=== PATIENT | male | born 1970 | race Caucasian/White ===

== ENCOUNTER → 2017-10-18 | Day surgery (SDC) | payer OTHER | LOC: ENDO/OP 07:43 | PROVIDERS: ATTEND Internal Medicine Gastroenterology | DX: R13.10 Dysphagia, unspecified (principal); K44.9 Diaphragmatic hernia without obstruction or gangrene | CPT/HCPCS: 91010 ==

== ENCOUNTER 2018-01-03 10:25 | Emergency (ER) | payer OTHER ==
--- NOTE | 2018-01-03 11:16 | RAD ---
LEFT FOREARM TWO VIEWS: HISTORY: Dog bite. Laceration. COMPARISON: None. FINDINGS: There is a punctate linear radial opacity within the lateral soft tissues of the mid forearm, annotat ed with an arrow. This is only seen on the AP view and is not seen on the lateral view. No fracture. No malalignment. IMPRESSION: Punctate linear radial opacity projecting over the lateral soft tissues of the mid forearm, measuring less than 1 x 2 mm. Recommend correlation for location to the patient's dog bite. POS: [facility]
--- NOTE | 2018-01-03 11:16 | RAD ---
LEFT HAND THREE VIEWS: HISTORY: Dog bite. Left hand injury. FINDINGS: Joint spaces are preserved. No acute, dislocation, or radiopaque foreign bodies are apparent. IMPRESSION: No acute osseous abnormalities are demonstrated. POS: [facility]
== END 2018-01-03 11:15 | disposition home or self-care (01) ==
LOC: SCSER 10:25
DX: S61.432A Puncture wound without foreign body of left hand, initial encounter (principal); S51.832A Puncture wound without foreign body of left forearm, initial encounter; F43.10 Post-traumatic stress disorder, unspecified; F17.210 Nicotine dependence, cigarettes, uncomplicated; W54.0XXA Bitten by dog, initial encounter

== ENCOUNTER 2018-01-18 11:50 | Emergency (ER) | payer OTHER ==
--- NOTE | 2018-01-18 13:03 | RAD ---
PA AND LATERAL CHEST: HISTORY: Cough after inhaling fumes. FINDINGS: Heart size and mediastinum are within normal limits. The lungs are clear of infiltrates. No signifi cant bony findings. There are postoperative changes of the cervical spine. IMPRESSION: No active intrathoracic disease. POS: [facility]
== END 2018-01-18 13:20 | disposition home or self-care (01) ==
LOC: SCSER 11:50
DX: J20.9 Acute bronchitis, unspecified (principal); J06.9 Acute upper respiratory infection, unspecified; M41.9 Scoliosis, unspecified; F43.10 Post-traumatic stress disorder, unspecified; F17.210 Nicotine dependence, cigarettes, uncomplicated
CPT/HCPCS: 71046; 99406

== ENCOUNTER 2022-02-10 14:46 | Outpatient (CLI) | payer OTHER | END 2022-02-10 14:47 | disposition home or self-care (01) | LOC: LABBT 14:46 | PROVIDERS: ATTEND Neurological Surgery | DX: M54.16 Radiculopathy, lumbar region (principal); Z20.822 Contact with and (suspected) exposure to COVID-19 | CPT/HCPCS: U0003; U0005 ==

== ENCOUNTER 2022-02-15 05:51 | Day surgery (SDC) | payer OTHER ==
[2022-02-14 11:45] VITALS: BMI 27.5
[2022-02-15] MEDS ORDERED: Bupivacaine PF 0.5% 30 ML VIAL ONE (06:36)
[2022-02-15] MEDS ORDERED: EPINEPHrine 1 MG/ML AMP ONE (06:36)
[2022-02-15] MEDS ORDERED: Thrombin 5000 UNITS/5 ML VIAL ONE (06:36)
[2022-02-15] MEDS ORDERED: Famotidine/PF 20 mg/2ml Vial ONE (06:59)
[2022-02-15] MEDS ORDERED: fentaNYL Citrate/PF 100 MCG/2 ML SYRINGE ONE ×3 (06:59→08:33)
[2022-02-15] MEDS ORDERED: SUGAMMADEX SODIUM 200 MG/2 ML VIAL ONE (06:59)
[2022-02-15] MEDS ORDERED: Midazolam HCl 2 mg/2 ml Vial ONE (07:23)
[2022-02-15] MEDS ORDERED: Sodium Chloride 0.9% 100 ML ONE ×2 (07:24→11:44)
[2022-02-15] MEDS ORDERED: CEFAZOLIN 2 GM VIAL ONE ×2 (07:24→11:44)
[2022-02-15] MEDS ORDERED: PROPOFOL 200 MG/20 ML VIAL ONE (08:07)
[2022-02-15] MEDS ORDERED: Dexamethasone 20 MG/5 ML VIAL ONE (08:07)
[2022-02-15] MEDS ORDERED: Rocuronium Bromide 10 MG/ML (10ML VIAL) ONE (08:07)
[2022-02-15] MEDS ORDERED: Lidocaine 1% PF 5 ML VIAL ONE (08:07)
[2022-02-15] MEDS ORDERED: Ondansetron PF 4 MG/2 ML Vial ONE (08:07)
[2022-02-15] MEDS ORDERED: PHENYLEPHRINE-NS 100 MCG/ML 10 ML SYRINGE ONE (08:07)
[2022-02-15] MEDS ORDERED: Ketorolac Tromethamine 30 MG/ML VIAL ONE (08:07)
[2022-02-15] MEDS ORDERED: ePHEDrine 50 MG/ML VIAL ONE (08:07)
[2022-02-15] MEDS ORDERED: Metoclopramide HCl 10 MG/2 ML VIAL ONE (08:07)
[2022-02-15] MEDS ORDERED: Fentanyl 100 MCG/2 ML VIAL ONE ×2 (09:41→10:13)
[2022-02-15] MEDS ORDERED: Tamsulosin HCl 0.4 MG CAP ONE (10:27)
== END 2022-02-15 12:20 | disposition home or self-care (01) ==
LOC: SDC 05:51
PROVIDERS: ATTEND Neurological Surgery
PROC: 01NB0ZZ Release Lumbar Nerve, Open Approach (ICD-10-PCS; principal; 2022-02-15)
DX: M48.061 Spinal stenosis, lumbar region without neurogenic claudication (principal); M51.16 Intervertebral disc disorders with radiculopathy, lumbar region; G89.29 Other chronic pain; F17.210 Nicotine dependence, cigarettes, uncomplicated; Z79.899 Other long term (current) drug therapy
CPT/HCPCS: 76000; C1713; J0171; J1100; J1885; J2250; J2405; J2704; J2765; J3010; J3490; S0020; S0028